=== PATIENT | female | born 1945 | race Caucasian/White ===

== ENCOUNTER 2017-01-15 11:19 | Observation (INO) ==
--- NOTE | 2017-01-15 11:43 | Emergency Department Note ---
Disposition Clinical Impression: Chest pain Disposition: Admitted As Inpatient Time of Disposition: 13:30 Chest Pain HPI - General Stated Complaint: CP Source: EMS Limitations: no limitations Vital Signs Reviewed: Yes Nursing Notes Reviewed: Yes - History of Present Illness HPI Narrative: Mrs. Mackenzie had just gotten out of the shower about an hour and 15 minutes before our interview and mentioned some midsternal chest pain. She was also short of breath and somewhat nauseated. She felt as though her heart was beating fast and she was somewhat dizzy and lightheaded as well. She felt like "my chest was going to explode". It is decreased somewhat since then but she still rates it as a 6 out of 10. Pt complaint: chest pain Severity scale (1-10): 4 - Related Data Home Medications Medication Instructions Recorded Confirmed Atorvastatin Calcium [Lipitor] 10 mg PO DAILY 03/27/16 01/15/17 ClonazePAM [Klonopin] 1 mg PO BID 03/27/16 01/15/17 Levothyroxine [Synthroid] 50 mcg PO DAILY 03/27/16 01/15/17 Metformin HCl [Metformin HCl ER] 500 mg PO DAILY 03/27/16 01/15/17 Omeprazole 40 mg PO DAILY 03/27/16 01/15/17 Quetiapine Fumarate [Seroquel] 300 mg PO DAILY 03/27/16 01/15/17 Amlodipine Besylate/Benazepril 1 each PO DAILY 01/06/17 01/15/17 [Lotrel 10-20 mg Capsule] Sotalol [Betapace] 80 mg PO Q12H 01/06/17 01/15/17 Previous Rx's Medication Instructions Recorded Aspirin 81 mg PO DAILY #30 tab.chew 06/07/16 Allergies Allergy/AdvReac Type Severity Reaction Status Date / Time codeine Allergy Rash Verified 11/23/16 20:12 nitroglycerin Allergy Anaphylaxis Verified 11/23/16 20:12 Cardiovascular: Reports: chest pain, palpitations Respiratory: Reports: cough Gastrointestinal: Reports: nausea. Denies: vomiting Neurological: Denies: weakness, numbness, paresthesias Endocrine: Denies: fatigue Chest Pain PMH - Past Medical History Medical history: Reports: atrial fibrillation, diabetes, hypertension, thyroid disease Psychiatric history: Reports: anxiety CARE CENTER MANAGER history: Reports: no CARE CENTER MANAGER history - Social History Smoking Status: Never smoker Alcohol use: Reports: none Drug use: Reports: none Physical Exam - General Limitations: no limitations General appearance: alert, in no apparent distress - Head Head exam: atraumatic - Eye Eye exam: Present: normal appearance - ENT ENT exam: normal oropharynx, normal external ear exam - Neck Neck exam: Present: normal inspection. Absent: lymphadenopathy - Chest Chest inspection: Present: normal inspection, symmetric chest wall rise, tenderness (Positive pain to palpation mid sternum on light palpation) - Respiratory Respiratory exam: Present: normal lung sounds bilaterally. Absent: respiratory distress, wheezes, stridor - Cardiovascular Cardiovascular exam: Present: regular rate, normal rhythm, normal heart sounds. Absent: systolic murmur, diastolic murmur - Abdominal Exam Abdominal exam: Present: soft, Non-Tender - Extremities Exam Extremities exam: Present: normal inspection. Absent: pedal edema - Neurological Exam Neurological exam: Present: alert - Psychiatric Psychiatric exam: Present: normal affect, normal mood - Skin Skin exam: Present: warm, dry Course Vital Signs Temperature 97.4 F L 01/15/17 11:31 Pulse Rate 100 01/15/17 11:31 Respiratory Rate 16 01/15/17 11:31 Blood Pressure 99/72 01/15/17 11:31 O2 Sat by Pulse Oximetry 96 01/15/17 11:31 Temperature 98.0 F 01/15/17 15:46 Pulse Rate 70 01/15/17 15:46 Respiratory Rate 20 01/15/17 15:46 Blood Pressure 133/78 01/15/17 15:46 O2 Sat by Pulse Oximetry 91 01/15/17 15:46 Oxygen Delivery Oxygen Delivery Room Air Chest Pain - [facility] Narrative Medical decision making narrative: Chest pain. Ms Huertas is a diabetic with a history of A. fib. Her rate is well controlled currently and I do not think this is the source of her chest pain. She did have pain on palpation but she is also at risk for CAD. She did have some typical anginal equivalents that accompanied this chest pain. It got better spontaneously then one from 6 out of 10-3 out of 10 with 2 mg of morphine. It resolved to her baseline with 2 more milligrams of morphine IV. She reports anaphylaxis with nitroglycerin. It would be prudent to obscure as her first troponin is negative but it has only been about an hour and a half since the onset of symptoms. I spoke with the covering hospitalist here Sarah presented the case. He accepted admission. She is in improved condition awaiting transfer to the floor. - Lab Data Lab results reviewed: Yes I reviewed the patient's lab results. Result diagrams: 01/15/17 12:30 01/15/17 12:30 Lab Results 01/15/17 01/15/17 01/15/17 Range/Units 12:30 12:30 12:30 WBC 6.6 (4.3-11.1) K/mcL RBC 4.48 (3.82-4.97) M/mcL Hgb 13.9 (11.5-15.4) g/dL Hct 42.7 (35.3-44.9) % MCV 95.3 (83.0-100.0) fL MCH 31.0 (28.0-33.3) pg MCHC 32.6 (31.6-35.5) g/dL RDW 12.7 (11.5-14.5) % Plt Count 245 (140-400) K/mcL MPV 9.3 L (9.4-12.4) fL Immature Gran % 0.3 (0-4) % Seg Neutrophils % 47.2 % Lymphocytes % 35.0 % Monocytes % 5.6 % Eosinophils % 11.0 % Basophils % 0.9 % Neutrophils # 3.1 (1.6-8.9) K/mcL Lymphocytes # 2.3 (0.6-4.6) K/mcL Monocytes # 0.4 (0.0-1.3) K/mcL Eosinophils # 0.7 H (0.0-0.6) K/mcL Basophils # 0.1 (0.0-0.2) K/mcL D-Dimer (0-500) ng/mLFEU Sodium (136-145) mEq/L Potassium (3.5-4.5) mEq/L Chloride (98-109) mEq/L Carbon Dioxide (19-29) mEq/L BUN (7-20) mg/dL Creatinine (0.57-1.11) mg/dL Est GFR ( Amer) (> 60) Est GFR (Non-Af Amer) (> 60) BUN/Creatinine Ratio (6-26) Glucose (70-99) mg/dL Calculated Osmolality (280-300) Calcium (8.6-10.8) mg/dL Phosphorus (2.3-4.7) mg/dL Magnesium (1.6-2.6) mg/dL Total Bilirubin (0.2-1.2) mg/dL AST (5-34) Units/L ALT (0-55) Units/L Alkaline Phosphatase (38-126) Units/L Troponin I 0.01 (0-0.03) ng/mL B-Natriuretic Peptide 44 (0-100) pg/mL Serum Total Protein (6.0-8.3) g/dL Albumin (3.5-5.0) g/dL Globulin (2.4-3.5) g/dL Albumin/Globulin Ratio (1.1-2.2) 01/15/17 01/15/17 Range/Units 12:30 12:30 WBC (4.3-11.1) K/mcL RBC (3.82-4.97) M/mcL Hgb (11.5-15.4) g/dL Hct (35.3-44.9) % MCV (83.0-100.0) fL MCH (28.0-33.3) pg MCHC (31.6-35.5) g/dL RDW (11.5-14.5) % Plt Count (140-400) K/mcL MPV (9.4-12.4) fL Immature Gran % (0-4) % Seg Neutrophils % % Lymphocytes % % Monocytes % % Eosinophils % % Basophils % % Neutrophils # (1.6-8.9) K/mcL Lymphocytes # (0.6-4.6) K/mcL Monocytes # (0.0-1.3) K/mcL Eosinophils # (0.0-0.6) K/mcL Basophils # (0.0-0.2) K/mcL D-Dimer 480 (0-500) ng/mLFEU Sodium 144 (136-145) mEq/L Potassium 4.0 (3.5-4.5) mEq/L Chloride 109 (98-109) mEq/L Carbon Dioxide 26 (19-29) mEq/L BUN 11 (7-20) mg/dL Creatinine 0.79 (0.57-1.11) mg/dL Est GFR ( Amer) > 60 (> 60) Est GFR (Non-Af Amer) > 60 (> 60) BUN/Creatinine Ratio 14 (6-26) Glucose 152 H (70-99) mg/dL Calculated Osmolality 300 (280-300) Calcium 9.0 (8.6-10.8) mg/dL Phosphorus 2.5 (2.3-4.7) mg/dL Magnesium 1.8 (1.6-2.6) mg/dL Total Bilirubin 0.3 (0.2-1.2) mg/dL AST 24 (5-34) Units/L ALT 28 (0-55) Units/L Alkaline Phosphatase 109 (38-126) Units/L Troponin I (0-0.03) ng/mL B-Natriuretic Peptide (0-100) pg/mL Serum Total Protein 6.7 (6.0-8.3) g/dL Albumin 3.5 (3.5-5.0) g/dL Globulin 3.2 (2.4-3.5) g/dL Albumin/Globulin Ratio 1.1 (1.1-2.2) - Radiology Data Radiology results reviewed: Yes I reviewed the patient's radiology results. - EKG Data EKG attestation: Yes I reviewed and interpreted this EKG. EKG results narrative: EKG is interpreted by me normal sinus rhythm 100 beats per minutes. One half box ST depression in lead 1. T-wave inversion aVL. No other T-wave abnormalities. No ST elevations. No evidence of hypertrophy. Left axis deviation. I do not appreciate any changes from study done recently 01/06/2017.
[2017-01-15] MEDS ORDERED: *HR* Morphine 2 MG/ML SYRINGE IVP ONE (12:08)
[2017-01-15 12:43] LABS: Basophils # 0.1 K/mcL (0.0-0.2); Basophils % 0.9 %; Eosinophils # 0.7 K/mcL (0.0-0.6); Hematocrit 42.7 % (35.3-44.9); Hemoglobin 13.9 g/dL (11.5-15.4); Immature Granulocytes % 0.3 % (0-4); Lymphocytes # 2.3 K/mcL (0.6-4.6); Mean Corpuscular HGB Conc 32.6 g/dL (31.6-35.5); Mean Corpuscular Volume 95.3 fL (83.0-100.0); Mean Platelet Volume 9.3 fL (9.4-12.4); Monocytes # 0.4 K/mcL (0.0-1.3); Monocytes % 5.6 %; Neutrophils # 3.1 K/mcL (1.6-8.9); Platelet Count 245 K/mcL (140-400); Red Blood Count 4.48 M/mcL (3.82-4.97); Red Cell Distribution Width 12.7 % (11.5-14.5); Segmented Neutrophils % 47.2 %
[2017-01-15] MEDS ORDERED: *HR* Morphine 2 MG/ML SYRINGE IVP PRN (12:44)
[2017-01-15 12:50] LABS: Alanine Aminotransferase 28 Units/L (0-55); Albumin 3.5 g/dL (3.5-5.0); Albumin/Globulin Ratio 1.1 (1.1-2.2); Alkaline Phosphatase 109 Units/L (38-126); Aspartate Amino Transferase 24 Units/L (5-34); BUN/Creatinine Ratio 14 (6-26); Bilirubin,Total 0.3 mg/dL (0.2-1.2); Blood Urea Nitrogen 11 mg/dL (7-20); Carbon Dioxide 26 mEq/L (19-29); Chloride 109 mEq/L (98-109); Globulin 3.2 g/dL (2.4-3.5); Glucose 152 mg/dL (70-99); Magnesium 1.8 mg/dL (1.6-2.6); Osmolality,Calculated 300 (280-300); Phosphorous 2.5 mg/dL (2.3-4.7); Sodium 144 mEq/L (136-145); Total Protein 6.7 g/dL (6.0-8.3); eGFR For African Americans > 60 (> 60); eGFR For Non-African Americans > 60 (> 60)
[2017-01-15] MEDS ORDERED: Ondansetron ODT 4 MG TAB.RAPDIS SL PRN (14:10)
[2017-01-15] MEDS ORDERED: Acetaminophen 325 MG TABLET PO PRN (14:10)
[2017-01-15] MEDS ORDERED: MOM Conc 10 ML UD.LIQ PO PRN (14:10)
[2017-01-15] MEDS ORDERED: Naloxone 0.4 MG/ML INJ IVP PRN (14:10)
--- NOTE | 2017-01-15 15:48 | Internal Med History&Physical ---
Date of Encounter: 01/15/17 Time of Encounter: 15:00 Assessment and Plan (1) HLD (hyperlipidemia) Current visit: No Status: Chronic Stable Qualifiers: Hyperlipidemia type: unspecified Qualified Code(s): E78.5 - Hyperlipidemia , unspecified (2) HTN (hypertension) Current visit: No Status: Acute Blood pressures well controlled. Qualifiers: Hypertension type: essential hypertension Qualified Code(s): I10 - Essential (primary) hypertension (3) Non-insulin dependent type 2 diabetes mellitus Current visit: No Status: Chronic He type II diabetic. (4) Hypothyroid Current visit: No Status: Acute Only history is hypothyroidism. She takes Synthroid and I will have to research her most recent lab Qualifiers: Hypothyroidism type: congenital without goiter Qualified Code(s): E03.1 - Congenital hypothyroidism without goiter (5) Paroxysmal a-fib Current visit: No Status: Acute Seems to be sinus and regular right now. She sees Dr. Leora ivan if she is here Saturday that will make an appointment. Internal Medicine - H&P: HPI Chief complaint: Chest pain Admitted From: Emergency Dept Plans for Post Hospital Care: Home History of present illness: Ms. Mackenzie is a 71 year old female Bout of 5 minute session of crushing chest discomfort or shortness of breath that resolved spontaneously. She is pain-free currently and only other history is of atrial fibrillation Past Med Surg Social Fam HX - Past Medical History Medical history: atrial fibrillation, diabetes, hypertension, thyroid disease Psychiatric history: anxiety - Social History Smoking Status: Never smoker Smokeless Tobacco Status: No Alcohol use: none Drug use: none - Family History Mother Family Member Ethnicity: Non- Hx Family Cardiac Disorders: No Hx Family Respiratory Disorders: Yes Hx Family Cancer: Yes Hx Family GI Disorders: No Hx Family Endocrine Disorder: No Hx Family Neuromuscular Disorders: No Hx Family Neurologic Disorders: No Hx Family HEENT Disorders: No Hx Family Autoimmune Disorders: No Internal Medicine - H&P: Meds Atorvastatin Calcium [Lipitor] 10 mg PO DAILY 03/27/16 [History] ClonazePAM [Klonopin] 1 mg PO BID 03/27/16 [History] Levothyroxine [Synthroid] 50 mcg PO DAILY 03/27/16 [History] Metformin HCl [Metformin HCl ER] 500 mg PO DAILY 03/27/16 [History] Omeprazole 40 mg PO DAILY 03/27/16 [History] Quetiapine Fumarate [Seroquel] 300 mg PO DAILY 03/27/16 [History] Aspirin 81 mg PO DAILY #30 tab.chew 06/07/16 [Rx] Amlodipine Besylate/Benazepril [Lotrel 10-20 mg Capsule] 1 each PO DAILY [History] Sotalol [Betapace] 80 mg PO Q12H 01/06/17 [History] Allergies codeine Allergy (Verified 11/23/16 20:12) Rash nitroglycerin Allergy (Verified 11/23/16 20:12) Anaphylaxis All Systems PM: A 10-system review of systems was performed and is negative for pertinent findings except as documented above in the HPI. - Constitutional Vitals: Temp Pulse Resp BP Pulse Ox 98.4 F 100 16 112/54 96 01/15/17 15:25 01/15/17 11:31 01/15/17 15:25 01/15/17 15:25 01/15/17 11:31 - Head Head exam: Present: atraumatic, normal inspection, normocephalic - Neck Neck exam general surgery: Present: supple, trachea midline. Absent: lymphadenopathy - Respiratory Respiratory exam: Present: CTAB. Absent: accessory muscle use, rales, rhonchi, wheezes - Cardiovascular Cardiovascular exam: Present: RRR, +S1, +S2. Absent: diastolic murmur, gallop, rubs, systolic murmur - GI/Abdominal GI/Abdominal exam: Present: normal bowel sounds, soft, no peritoneal signs. Absent: distended, tenderness Internal Med - H&P Results - Labs CBC & Chem 7: 01/15/17 12:30 01/15/17 12:30 Labs: Lab is good but the first troponin was done shortly after the complaint so will see what the next one says. There is any rise in troponin should be shipped immediately to obtain
--- NOTE | 2017-01-15 17:38 | Electrocardiograph Report ---
[place] [id number] Test Date: 2017-01-15 Pat Name: Mary Kate Mackenzie Department: 2000 Room: 116 Gender: F Layboy Tender: RUFINO : 1945 Requested By: Jude De Anda Order Number: [id number] Reading MD: Tiffanie Ceron Measurements Intervals [place] Rate: 100 P: 70 SC: 143 QRS: -26 QRSD: 95 T: 79 QT: 365 QTc: 422 Interpretive Statements SINUS TACHYCARDIA BORDERLINE LEFT AXIS DEVIATION NONSPECIFIC ST \T\ T-WAVE ABNORMALITY ABNORMAL RHYTHM ECG Electronically Signed On 01-15-2017 17:36:49 EDT by Tiffanie Ceron
[2017-01-15] MEDS ORDERED: Amoxicillin 500 MG CAPSULE PO SCH (21:00)
[2017-01-15] MEDS ORDERED: ClonazePAM 1 MG TABLET PO SCH (21:00)
[2017-01-15 21:08] LABS: Thyroid Stimulating Hormone 1.217 mcIU/mL (0.350-4.840)
[2017-01-15] MEDS: ClonazePAM 1 MG TABLET PO SCH (22:13)
[2017-01-16] MEDS ORDERED: Acetaminophen 325 MG TABLET PO PRN (04:50)
[2017-01-16] MEDS ORDERED: Naloxone 0.4 MG/ML INJ IVP PRN (04:51)
[2017-01-16] MEDS ORDERED: MOM Conc 10 ML UD.LIQ PO PRN (04:53)
[2017-01-16] MEDS ORDERED: Ondansetron ODT 4 MG TAB.RAPDIS SL PRN (04:54)
[2017-01-16] MEDS ORDERED: *HR* Enoxaparin 40 MG/0.4 ML SYRINGE SQ SCH ×2 (06:00)
[2017-01-16] MEDS ORDERED: *HR* Metformin 500 MG TABLET PO SCH ×2 (08:00)
[2017-01-16] MEDS ORDERED: AMOXICILLIN 500 MG PO SCH (09:00)
[2017-01-16] MEDS ORDERED: Aspirin Enteric Coated 81 MG Tablet PO SCH (09:00)
[2017-01-16] MEDS ORDERED: Aspirin 81 MG TAB.CHEW PO SCH (09:00)
[2017-01-16] MEDS: ClonazePAM 1 MG TABLET PO SCH (09:21)
[2017-01-16 11:22] VITALS: BP 138/84
--- NOTE | 2017-01-16 12:30 | Discharge Summary ---
Date of Encounter: 01/16/17 Time of Encounter: 12:25 - Discharge Diagnosis (1) Non-insulin dependent type 2 diabetes mellitus Priority: Secondary Status: Chronic (2) Chest pain Priority: Primary Status: Acute Qualifiers: Chest pain type: other chest pain Qualified Code(s): R07.89 - Other chest pain; R07.8 - Other chest pain - Discharge Medications Home Medications: Atorvastatin Calcium [Lipitor] 10 mg PO DAILY 03/27/16 [History] ClonazePAM [Klonopin] 1 mg PO BID 03/27/16 [History] Levothyroxine [Synthroid] 50 mcg PO DAILY 03/27/16 [History] Metformin HCl [Metformin HCl ER] 500 mg PO DAILY 03/27/16 [History] Omeprazole 40 mg PO DAILY 03/27/16 [History] Quetiapine Fumarate [Seroquel] 300 mg PO DAILY 03/27/16 [History] Aspirin 81 mg PO DAILY #30 tab.chew 06/07/16 [Rx] Amlodipine Besylate/Benazepril [Lotrel 10-20 mg Capsule] 1 each PO DAILY [History] Sotalol [Betapace] 80 mg PO Q12H 01/06/17 [History] Acetaminophen [Tylenol] 650 mg PO Q6HR PRN #0 tablet 01/16/17 [Rx] Amlodipine [Norvasc] 10 mg PO DAILY tablet 01/16/17 [Rx] Amoxicillin [Amoxil] 500 mg PO TID capsule 01/16/17 [Rx] Aspirin Enteric Coated [Aspirin EC] 81 mg PO DAILY tablet. 01/16/17 [Rx] ClonazePAM [Klonopin] 1 mg PO BID tablet 01/16/17 [Rx] Levothyroxine [Synthroid] 50 mcg PO 0630 tablet 01/16/17 [Rx] Lisinopril [Zestril] 2.5 mg PO DAILY tablet 01/16/17 [Rx] MOM Conc [MILK OF MAGNESIA conc] 10 ml PO DAILY PRN #0 ud.liq 01/16/17 [Rx] Metformin [Glucophage] 500 mg PO 0800 tablet 01/16/17 [Rx] Quetiapine Fumarate [Seroquel] 300 mg PO HS tablet 01/16/17 [Rx] Sotalol [Betapace] 80 mg PO Q12HR tablet 01/16/17 [Rx] Sotalol [Betapace] 80 mg PO Q12HR tablet 01/16/17 [Rx] Allergies/Adverse Reactions: Allergies codeine Allergy (Verified 11/23/16 20:12) Rash nitroglycerin Allergy (Verified 11/23/16 20:12) Anaphylaxis Date of admission: 01/15/17 15:24 Primary care physician: Gomez Lynch CNP Discharging clinician: Yousif Quiñonez Anticipated date of discharge: 01/16/17 - Patient Status Disposition: Home, Self-Care Condition: Fair Functional capacity at discharge: independent ambulation Overall status at discharge: patient is back to baseline - Discharge Instructions Instructions: Diabetes Mellitus Type 2 in Adults (DC) Follow Up With: Gomez Lynch CNP [Primary Care Provider] - - Diet and Activity Activity: increase activity as tolerated Diet: diabetic diet Hospital course: Ms. Mackenzie is a 71 year old female Chest pain. Ms Huertas is a diabetic with a history of A. fib. She initially presented to the ED with chest pain. Her rate is well controlled currently and I do not think this is the source of her chest pain. She did have pain on palpation but she is also at risk for CAD. She did have some typical anginal equivalents that accompanied this chest pain. It got better spontaneously then one from 6 out of 10-3 out of 10 with 2 mg of morphine. It resolved to her baseline with 2 more milligrams of morphine IV. She was admitted for rule out. Serial troponin was negative. On today's examination she has no chest pain. She is anxious about her son dying. She wants to go home. She has no further chest pain. No shortness of breath. Time spent discussing smoking cessation with patient: more than 10 minutes - Time Spent with Patient Total time spent providing and/or coordinating discharge services: Less than 30 minutes - Constitutional Vitals: Temp Pulse Resp BP Pulse Ox 98.0 F 78 16 138/84 93 01/16/17 11:00 01/16/17 11:00 01/16/17 11:00 01/16/17 11:00 01/16/17 11:00 General appearance: Present: A&O X 3, no acute distress - Respiratory Respiratory exam: Present: CTAB. Absent: accessory muscle use, rales, rhonchi, wheezes - Cardiovascular Cardiovascular exam: Present: RRR, +S1, +S2. Absent: diastolic murmur, gallop, rubs, systolic murmur - GI/Abdominal GI/Abdominal exam: Present: normal bowel sounds, soft, no peritoneal signs. Absent: distended, tenderness - Extremities Exam Extremities exam: Present: warm, radial pulses palpable and symetrical. Absent : calf tenderness, cyanotic, pedal edema - Neurological Exam Neurological exam: Present: CN II-XII intact, oriented X3, no focal deficits. Absent: pronater drift, facial droop, speech deficit
== END 2017-01-16 13:06 | disposition home or self-care (01) ==
LOC: EMEROOGRE 11:19 → INPGRE 11:19 → EMEROOGRE 12:45 → INPGRE 15:25
PROVIDERS: ADMIT Internal Medicine; ATTEND Internal Medicine

== ENCOUNTER 2017-05-17 13:40 | Observation (INO) ==
[2017-05-17] MEDS ORDERED: Nitroglycerin 0.4 MG TAB.SUBL SL PRN ×2 (14:26→16:45)
[2017-05-17] MEDS ORDERED: Ondansetron 4 MG/2 ML VIAL IVP ONE (14:27)
[2017-05-17 15:06] LABS: Basophils # 0.1 K/mcL (0.0-0.2); Basophils % 0.8 %; Eosinophils # 0.5 K/mcL (0.0-0.6); Eosinophils % 8.2 %; Hematocrit 40.5 % (35.3-44.9); Hemoglobin 13.6 g/dL (11.5-15.4); Immature Granulocytes % 0.2 % (0-4); Lymphocytes # 2.3 K/mcL (0.6-4.6); Lymphocytes % 36.5 %; Mean Corpuscular HGB Conc 33.6 g/dL (31.6-35.5); Mean Corpuscular Hemoglobin 31.8 pg (28.0-33.3); Mean Corpuscular Volume 94.6 fL (83.0-100.0); Mean Platelet Volume 9.4 fL (9.4-12.4); Monocytes # 0.4 K/mcL (0.0-1.3); Monocytes % 6.4 %; Platelet Count 199 K/mcL (140-400); Red Blood Count 4.28 M/mcL (3.82-4.97); Red Cell Distribution Width 12.4 % (11.5-14.5); Segmented Neutrophils % 47.9 %
[2017-05-17 15:18] LABS: INR 1.1; Prothrombin Time 12.1 Seconds (9.4-12.1)
[2017-05-17 15:20] LABS: D-Dimer < 211 ng/mLFEU (0-500)
[2017-05-17 15:23] LABS: Alanine Aminotransferase 54 Units/L (0-55); Albumin 3.5 g/dL (3.5-5.0); Albumin/Globulin Ratio 1.1 (1.1-2.2); Alkaline Phosphatase 97 Units/L (38-126); Aspartate Amino Transferase 44 Units/L (5-34); BUN/Creatinine Ratio 19 (6-26); Bilirubin,Total 0.3 mg/dL (0.2-1.2); Blood Urea Nitrogen 14 mg/dL (7-20); Calcium 9.1 mg/dL (8.6-10.8); Carbon Dioxide 23 mEq/L (19-29); Chloride 106 mEq/L (98-109); Globulin 3.2 g/dL (2.4-3.5); Glucose 145 mg/dL (70-99); Osmolality,Calculated 295 (280-300); Sodium 141 mEq/L (136-145); Total Protein 6.7 g/dL (6.0-8.3); eGFR For African Americans > 60 (> 60); eGFR For Non-African Americans > 60 (> 60)
--- NOTE | 2017-05-17 16:08 | Emergency Department Note ---
Disposition Clinical Impression: Chest pain Disposition: Admitted As Inpatient Condition: Good Instructions: Chest Pain (ED) Referrals: Gomez Lynch, ELECTRIC SHOVEL OPERATOR [Primary Care Provider] - Forms: ED Satisfaction Letter Time of Disposition: 16:04 Chest Pain HPI - General Chief Complaint: ED Chest Pain Stated Complaint: arrived by squad Source: patient, EMS Limitations: no limitations Vital Signs Reviewed: Yes Nursing Notes Reviewed: Yes - History of Present Illness HPI Narrative: Ms Mackenzie was sitting on her couch today and noticed the onset of sudden sharp midsternal chest pain. No radiation. It did make her short of breath and diaphoretic however. No nausea no vomiting. She heart attack about 15 years ago but does not know if it was reminiscent of that or not. She was also very dizzy and lightheaded even know she was in a sitting position. She does have a history of atrial fibrillation needed be cardioverted 3 years ago. She is on Cirella to for this she does not believe she has been back in A. fib since then however her daughter placed a finger monitor on her at home and told her that her heart was 150 bpm. She does not specifically recall any palpitation type symptoms. This lasted about 10 minutes and spontaneously decreased dramatically. She reports it as a "15 "out of 10 for those 10 minutes. She received 4 baby aspirin from the squad but tells me that nitroglycerin makes her stomach upset reports that is a anaphylactic allergy. She reports that during those 10 minutes "everything went black ". On further questioning she tells me that she could see nothing out of either eye. The time that she was lightheaded and had chest pain. She does tell me that it was not one eye or the other but both and that her vision is fully restored to baseline at this point. She does tell me that during our interview that her chest pain is still a 3 out of 10 at this point. 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 Severity scale (1-10): 4 - Related Data Home Medications Medication Instructions Recorded Confirmed Atorvastatin Calcium [Lipitor] 10 mg PO DAILY 03/27/16 05/17/17 Levothyroxine [Synthroid] 50 mcg PO DAILY 03/27/16 05/17/17 Omeprazole 40 mg PO DAILY 03/27/16 05/17/17 Quetiapine Fumarate [Seroquel] 25 mg PO BID 03/27/16 05/17/17 Amlodipine Besylate/Benazepril 1 each PO DAILY 01/06/17 05/17/17 [Lotrel 10-20 mg Capsule] Cetirizine HCl [Zyrtec] 10 mg PO DAILY 05/17/17 05/17/17 Rivaroxaban [Xarelto] 20 mg PO DAILY 05/17/17 05/17/17 Previous Rx's Medication Instructions Recorded Aspirin 81 mg PO DAILY #30 tab.chew 06/07/16 Quetiapine Fumarate [Seroquel] 300 mg PO HS tablet 01/16/17 Sotalol [Betapace] 80 mg PO Q12HR tablet 01/16/17 clonazePAM [Klonopin] 1 mg PO BID tablet 01/16/17 metFORMIN [Glucophage] 500 mg PO 0800 tablet 01/16/17 Allergies Allergy/AdvReac Type Severity Reaction Status Date / Time codeine Allergy Rash Verified 11/23/16 20:12 nitroglycerin Allergy Anaphylaxis Verified 11/23/16 20:12 All systems ED: reviewed and negative except as stated. Constitutional: Denies: fever, chills Eyes: Reports: vision change ENT ED: Denies: dysphagia Cardiovascular: Reports: chest pain. Denies: palpitations Respiratory: Reports: dyspnea Gastrointestinal: Denies: nausea, vomiting Musculoskeletal: Denies: back pain Neurological: Denies: headache Endocrine: Denies: fatigue Chest Pain PMH - Past Medical History Medical history: Reports: atrial fibrillation, diabetes, hypertension, thyroid disease Psychiatric history: Reports: anxiety BIOMEDICAL ENGINEERING PROFESSOR history: Reports: no BIOMEDICAL ENGINEERING PROFESSOR history - Social History Smoking Status: Never smoker Alcohol use: Reports: none Drug use: Reports: none Physical Exam - General Limitations: no limitations General appearance: alert, in no apparent distress - Head Head exam: normocephalic - Eye Eye exam: Present: normal appearance - ENT ENT exam: normal oropharynx - Neck Neck exam: Present: normal inspection, other (No JVD). Absent: lymphadenopathy - Chest Chest inspection: Present: tenderness (Positive pain to palpation mid sternum that she is unable to tell me if this reproduces her presenting complaint) - Respiratory Respiratory exam: Present: normal lung sounds bilaterally. Absent: respiratory distress, wheezes, stridor - Cardiovascular Cardiovascular exam: Present: regular rate, normal rhythm, normal heart sounds - Abdominal Exam Abdominal exam: Present: soft, Non-Tender - Extremities Exam Extremities exam: Present: normal inspection. Absent: pedal edema - Neurological Exam Neurological exam: Present: alert - Psychiatric Psychiatric exam: Present: normal affect, normal mood - Skin Skin exam: Present: warm, dry Course Vital Signs Temperature 98.6 F 05/17/17 13:41 Pulse Rate 97 05/17/17 13:41 Respiratory Rate 16 05/17/17 13:41 Blood Pressure 133/81 05/17/17 13:41 O2 Sat by Pulse Oximetry 95 05/17/17 13:41 Temperature 98.6 F 05/17/17 13:41 Pulse Rate 97 05/17/17 13:41 Respiratory Rate 16 05/17/17 13:41 Blood Pressure 133/81 05/17/17 13:41 O2 Sat by Pulse Oximetry 95 05/17/17 13:41 Oxygen Delivery Oxygen Delivery Room Air Chest Pain - MDM Narrative Medical decision making narrative: Chest pain. Atypical history but Miss Mackenzie does have some risk factors. 3 have 10 chest pain on initial interview cause me to want to use nitroglycerin to get her chest pain free. I did explain that GI upset is probably not an allergy and even gave him some IV Zofran before administering the nitroglycerin. Just the same ER staff tells me she refused. She also has a codeine allergy therefore morphine was not offered either. Chest pain resolved with further observation to a chest pain-free state. Initial troponin negative. I think it would be prudent to continue to observe her on telemetry and cycle her troponins. She is known to [facility] but refuses to go there. I did speak with the covering hospitalist at [facility] presented the case. He accepted admission. She is currently in stable condition chest pain-free awaiting transfer to the floor here [facility]. - Medical Records Medical records reviewed: Yes I reviewed the patient's medical records. - Lab Data Lab results reviewed: Yes I reviewed the patient's lab results. Result diagrams: 05/17/17 14:50 05/17/17 14:50 Lab Results 05/17/17 05/17/17 05/17/17 Range/Units 14:50 14:50 14:50 WBC 6.2 (4.3-11.1) K/mcL RBC 4.28 (3.82-4.97) M/mcL Hgb 13.6 (11.5-15.4) g/dL Hct 40.5 (35.3-44.9) % MCV 94.6 (83.0-100.0) fL MCH 31.8 (28.0-33.3) pg MCHC 33.6 (31.6-35.5) g/dL RDW 12.4 (11.5-14.5) % Plt Count 199 (140-400) K/mcL MPV 9.4 (9.4-12.4) fL Immature Gran % 0.2 (0-4) % Seg Neutrophils % 47.9 % Lymphocytes % 36.5 % Monocytes % 6.4 % Eosinophils % 8.2 % Basophils % 0.8 % Neutrophils # 3.0 (1.6-8.9) K/mcL Lymphocytes # 2.3 (0.6-4.6) K/mcL Monocytes # 0.4 (0.0-1.3) K/mcL Eosinophils # 0.5 (0.0-0.6) K/mcL Basophils # 0.1 (0.0-0.2) K/mcL PT 12.1 (9.4-12.1) Seconds INR 1.1 APTT 36.0 (26.0-36.0) Seconds D-Dimer < 211 (0-500) ng/mLFEU Sodium 141 (136-145) mEq/L Potassium 4.0 (3.5-4.5) mEq/L Chloride 106 (98-109) mEq/L Carbon Dioxide 23 (19-29) mEq/L BUN 14 (7-20) mg/dL Creatinine 0.74 (0.57-1.11) mg/dL Est GFR ( Amer) > 60 (> 60) Est GFR (Non-Af Amer) > 60 (> 60) BUN/Creatinine Ratio 19 (6-26) Glucose 145 H (70-99) mg/dL Calculated Osmolality 295 (280-300) Calcium 9.1 (8.6-10.8) mg/dL Total Bilirubin 0.3 (0.2-1.2) mg/dL AST 44 H (5-34) Units/L ALT 54 (0-55) Units/L Alkaline Phosphatase 97 (38-126) Units/L Troponin I (0-0.03) ng/mL B-Natriuretic Peptide (0-100) pg/mL Serum Total Protein 6.7 (6.0-8.3) g/dL Albumin 3.5 (3.5-5.0) g/dL Globulin 3.2 (2.4-3.5) g/dL Albumin/Globulin Ratio 1.1 (1.1-2.2) 05/17/17 05/17/17 Range/Units 14:50 14:50 WBC (4.3-11.1) K/mcL RBC (3.82-4.97) M/mcL Hgb (11.5-15.4) g/dL Hct (35.3-44.9) % MCV (83.0-100.0) fL MCH (28.0-33.3) pg MCHC (31.6-35.5) g/dL RDW (11.5-14.5) % Plt Count (140-400) K/mcL MPV (9.4-12.4) fL Immature Gran % (0-4) % Seg Neutrophils % % Lymphocytes % % Monocytes % % Eosinophils % % Basophils % % Neutrophils # (1.6-8.9) K/mcL Lymphocytes # (0.6-4.6) K/mcL Monocytes # (0.0-1.3) K/mcL Eosinophils # (0.0-0.6) K/mcL Basophils # (0.0-0.2) K/mcL PT (9.4-12.1) Seconds INR APTT (26.0-36.0) Seconds D-Dimer (0-500) ng/mLFEU Sodium (136-145) mEq/L Potassium (3.5-4.5) mEq/L Chloride (98-109) mEq/L Carbon Dioxide (19-29) mEq/L BUN (7-20) mg/dL Creatinine (0.57-1.11) mg/dL Est GFR ( Amer) (> 60) Est GFR (Non-Af Amer) (> 60) BUN/Creatinine Ratio (6-26) Glucose (70-99) mg/dL Calculated Osmolality (280-300) Calcium (8.6-10.8) mg/dL Total Bilirubin (0.2-1.2) mg/dL AST (5-34) Units/L ALT (0-55) Units/L Alkaline Phosphatase (38-126) Units/L Troponin I 0.01 (0-0.03) ng/mL B-Natriuretic Peptide 62 (0-100) pg/mL Serum Total Protein (6.0-8.3) g/dL Albumin (3.5-5.0) g/dL Globulin (2.4-3.5) g/dL Albumin/Globulin Ratio (1.1-2.2) - Radiology Data Radiology results reviewed: Yes I reviewed the patient's radiology results. - EKG Data EKG attestation: Yes I reviewed and interpreted this EKG. EKG results narrative: EKG is interpreted by me initially done at 1348 normal sinus rhythm 96 bpm. Left axis deviation. No evidence of hypertrophy. There is some T-wave flattening in 1 and aVL. To some extent this is seen in V3 and V4 V5 V6 as well although there is some positive deflection of the T waves in these leads. No ST elevation or depression. No Q waves. EKG repeated when she was completely chest pain-free at 1552. No appreciable changes from initial EKG.
[2017-05-17] MEDS ORDERED: Acetaminophen 325 MG TABLET PO PRN (16:45)
[2017-05-17] MEDS ORDERED: Naloxone 0.4 MG/ML INJ IVP PRN (16:45)
[2017-05-17] MEDS ORDERED: Ondansetron 4 MG/2 ML VIAL IVP PRN (16:45)
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
[2017-05-17] MEDS ORDERED: clonazePAM 1 MG TABLET PO SCH (21:00)
[2017-05-17] MEDS: clonazePAM 1 MG TABLET PO SCH (23:01)
[2017-05-18] MEDS ORDERED: *HR* Enoxaparin 40 MG/0.4 ML SYRINGE SQ SCH (06:00)
[2017-05-18] MEDS ORDERED: *HR* Metformin 500 MG TABLET PO SCH (08:00)
[2017-05-18] MEDS: clonazePAM 1 MG TABLET PO SCH (08:11)
[2017-05-18] MEDS ORDERED: Aspirin 81 MG TAB.CHEW PO SCH (09:00)
[2017-05-18] MEDS ORDERED: amLODIPine 5 MG TABLET PO SCH (09:00)
[2017-05-18 11:33] VITALS: BP 110/60
--- NOTE | 2017-05-18 12:01 | Discharge Summary ---
Date of Encounter: 05/18/17 Time of Encounter: 11:56 - Discharge Diagnosis (1) Chest pain Priority: Primary Status: Acute Comments: Patient was admitted to an observation bed from the emergency room having come to the ER with a history of chest pain and possibly passing out. She said she had an episode of chest pain that was "15-20 out of 10 "clear across her anterior chest. Later it dissipated down to almost nothing. Her pulse was 150 and then 102 and her blood pressure is 180/104 at home. She was brought to the emergency room after having been given aspirin by the squad. Her workup in the ER was unremarkable including chest x-ray, EKG which was unchanged from before and sinus rhythm, serial troponins and negative. Having had a history of chest pain and prior history of paroxysmal atrial fibrillation and poorly documented SD 15 years ago she was admitted to an observation bed. Overnight she has had no chest pain, dyspnea, neurologic or cardiac symptoms at all. This morning she has been ambulatory, had a shower. Her only complaint is that she has palpable right parasternal tenderness in a small area consistent with costochondritis. Her serial troponins were unremarkable and last was 0.00. Her cardiac and respiratory examinations are normal. Her vitals are stable. She will be discharged to home today. We did not make any change in her current medications. She was last evaluated by Dr. White in January. I recommended that she contact Lio Lynch's office on Saturday for follow-up. She will return to the ER if having symptoms in the meantime. Qualifiers: Chest pain type: other chest pain Qualified Code(s): R07.89 - Other chest pain; R07.8 - Other chest pain (2) Paroxysmal a-fib Priority: Secondary Status: Chronic Comments: Patient has a previous history of paroxysmal atrial fibrillation. She has been in sinus rhythm since admission. She remains anticoagulated with Xarelto. (3) HTN (hypertension) Priority: Secondary Status: Chronic Comments: She is a chronic history of hypertension. Her blood pressures have been normal since admission. She was discharged on her usual hypertensive medication. Qualifiers: Hypertension type: essential hypertension Qualified Code(s): I10 - Essential (primary) hypertension (4) Non-insulin dependent type 2 diabetes mellitus Priority: Secondary Status: Chronic Comments: She has a history of diabetes mellitus type 2. Her sugars have been 100-130 range. We did not change her medication. 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 - Discharge Medications Home Medications: Atorvastatin Calcium [Lipitor] 10 mg PO DAILY 03/27/16 [History] Levothyroxine [Synthroid] 50 mcg PO DAILY 03/27/16 [History] Omeprazole 40 mg PO DAILY 03/27/16 [History] Quetiapine Fumarate [Seroquel] 25 mg PO BID 03/27/16 [History] Aspirin 81 mg PO DAILY #30 tab.chew 06/07/16 [Rx] Amlodipine Besylate/Benazepril [Lotrel 10-20 mg Capsule] 1 each PO DAILY [History] Quetiapine Fumarate [Seroquel] 300 mg PO HS tablet 01/16/17 [Rx] Sotalol [Betapace] 80 mg PO Q12HR tablet 01/16/17 [Rx] metFORMIN [Glucophage] 500 mg PO 0800 tablet 01/16/17 [Rx] Cetirizine HCl [Zyrtec] 10 mg PO DAILY 05/17/17 [History] Rivaroxaban [Xarelto] 20 mg PO DAILY 05/17/17 [History] Acetaminophen [Tylenol] 650 mg PO Q6HR PRN tab 05/18/17 [Rx] clonazePAM [Klonopin] 1 mg PO DAILY tab 05/18/17 [Rx] clonazePAM [Klonopin] 2 mg PO HS tab 05/18/17 [Rx] Allergies/Adverse Reactions: Allergies codeine Allergy (Verified 11/23/16 20:12) Rash ibuprofen Allergy (Verified 05/17/17 18:30) Shakiness nitroglycerin Allergy (Verified 11/23/16 20:12) Anaphylaxis Procedures/tests Complete & Pending: Laboratory Results - last 24 hr 05/17/17 05/17/17 05/17/17 14:50 14:50 14:50 WBC 6.2 RBC 4.28 Hgb 13.6 Hct 40.5 MCV 94.6 MCH 31.8 MCHC 33.6 RDW 12.4 Plt Count 199 MPV 9.4 Immature Gran % 0.2 Seg Neutrophils % 47.9 Lymphocytes % 36.5 Monocytes % 6.4 Eosinophils % 8.2 Basophils % 0.8 Neutrophils # 3.0 Lymphocytes # 2.3 Monocytes # 0.4 Eosinophils # 0.5 Basophils # 0.1 PT 12.1 INR 1.1 APTT 36.0 D-Dimer < 211 Sodium 141 Potassium 4.0 Chloride 106 Carbon Dioxide 23 BUN 14 Creatinine 0.74 Est GFR ( Amer) > 60 Est GFR (Non-Af Amer) > 60 BUN/Creatinine Ratio 19 Glucose 145 H POC Glucose Calculated Osmolality 295 Calcium 9.1 Total Bilirubin 0.3 AST 44 H ALT 54 Alkaline Phosphatase 97 Troponin I B-Natriuretic Peptide Serum Total Protein 6.7 Albumin 3.5 Globulin 3.2 Albumin/Globulin Ratio 1.1 05/17/17 05/17/17 05/17/17 14:50 14:50 17:10 WBC RBC Hgb Hct MCV MCH MCHC RDW Plt Count MPV Immature Gran % Seg Neutrophils % Lymphocytes % Monocytes % Eosinophils % Basophils % Neutrophils # Lymphocytes # Monocytes # Eosinophils # Basophils # PT INR APTT D-Dimer Sodium Potassium Chloride Carbon Dioxide BUN Creatinine Est GFR ( Amer) Est GFR (Non-Af Amer) BUN/Creatinine Ratio Glucose POC Glucose Calculated Osmolality Calcium Total Bilirubin AST ALT Alkaline Phosphatase Troponin I 0.01 0.02 B-Natriuretic Peptide 62 Serum Total Protein Albumin Globulin Albumin/Globulin Ratio 05/17/17 05/17/17 05/18/17 20:37 22:45 05:00 WBC RBC Hgb Hct MCV MCH MCHC RDW Plt Count MPV Immature Gran % Seg Neutrophils % Lymphocytes % Monocytes % Eosinophils % Basophils % Neutrophils # Lymphocytes # Monocytes # Eosinophils # Basophils # PT INR APTT D-Dimer Sodium Potassium Chloride Carbon Dioxide BUN Creatinine Est GFR ( Amer) Est GFR (Non-Af Amer) BUN/Creatinine Ratio Glucose POC Glucose 129 H Calculated Osmolality Calcium Total Bilirubin AST ALT Alkaline Phosphatase Troponin I 0.02 0.00 B-Natriuretic Peptide Serum Total Protein Albumin Globulin Albumin/Globulin Ratio 05/18/17 08:08 WBC RBC Hgb Hct MCV MCH MCHC RDW Plt Count MPV Immature Gran % Seg Neutrophils % Lymphocytes % Monocytes % Eosinophils % Basophils % Neutrophils # Lymphocytes # Monocytes # Eosinophils # Basophils # PT INR APTT D-Dimer Sodium Potassium Chloride Carbon Dioxide BUN Creatinine Est GFR ( Amer) Est GFR (Non-Af Amer) BUN/Creatinine Ratio Glucose POC Glucose 128 H Calculated Osmolality Calcium Total Bilirubin AST ALT Alkaline Phosphatase Troponin I B-Natriuretic Peptide Serum Total Protein Albumin Globulin Albumin/Globulin Ratio Date of admission: 05/17/17 17:21 Primary care physician: Gomez Lynch CNP Discharging clinician: Ranjan Powell Anticipated date of discharge: 05/18/17 - Patient Status Disposition: Home, Self-Care Functional capacity at discharge: independent ambulation Overall status at discharge: patient is back to baseline - Discharge Instructions Follow Up With: Gomez Lynch CNP [Primary Care Provider] - - Diet and Activity Activity: increase activity as tolerated Diet: diabetic diet, low fat, low cholesterol Interval History: Overnight the patient had no chest pain, dyspnea, dysrhythmias. Vitals have been. She has been ambulatory and had a shower this morning. She is ready for discharge. Hospital course: Ms. Mackenzie is a 71 year old female with known history of paroxysmal atrial fibrillation and previous SD was admitted to observation bed with chest pain history. Please see the diagnosis above. - Time Spent with Patient Total time spent providing and/or coordinating discharge services: - Constitutional Vitals: Temp Pulse Resp BP Pulse Ox 98.2 F 74 18 110/60 91 05/18/17 11:27 05/18/17 11:27 05/18/17 11:27 05/18/17 11:27 05/18/17 11:27 General appearance: Present: A&O X 3, morbidly obese, no acute distress, answers questions appropriately - Respiratory Respiratory exam: Present: decreased breath sounds, CTAB - Cardiovascular Cardiovascular exam: Present: RRR, +S1, +S2. Absent: systolic murmur - GI/Abdominal GI/Abdominal exam: Present: soft. Absent: tenderness - Extremities Exam Extremities exam: Absent: calf tenderness, pedal edema, tenderness - VTE Reasons for not Prescribing Prophylaxis: Not indicated-Anticoagulated or INR therapeutic
[2017-05-18] MEDS ORDERED: *HR* Rivaroxaban 10 MG TABLET PO SCH (17:00)
[2017-05-18] MEDS ORDERED: clonazePAM 1 MG TABLET PO SCH (21:00)
--- NOTE | 2017-05-20 15:15 | Electrocardiograph Report ---
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
--- NOTE | 2017-05-20 15:24 | Electrocardiograph Report ---
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
== END 2017-05-18 12:30 | disposition home or self-care (01) ==
LOC: EMEROOGRE 13:40 → INPGRE 13:40
PROVIDERS: ADMIT Family Medicine; ATTEND Family Medicine

== ENCOUNTER 2018-07-12 19:07 | Observation (INO) ==
[2018-07-12] MEDS ORDERED: *HR* Morphine 2 MG/ML SYRINGE IVP ONE (19:35)
--- NOTE | 2018-07-12 19:49 | Emergency Department Note ---
Disposition Clinical Impression: Atypical chest pain Disposition: Admitted As Inpatient Condition: Good Forms: ED Satisfaction Letter Chest Pain HPI - General Chief Complaint: ED Chest Pain Stated Complaint: chest pain Source: patient, EMS Limitations: no limitations Vital Signs Reviewed: Yes Nursing Notes Reviewed: Yes - History of Present Illness HPI Narrative: Was sitting in a recliner and developed chest pain in the anterior chest and a fast heart rate. The heart rate came back down but she still has chest pain that is somewhat sharp and just to the left of the anterior midline. No radiation to neck, shoulder, arm or back. Had some nausea and she said she broke out into a sweat. Did not take nitroglycerine as she believes she is allergic to it. She was given zofran and 324mg of aspirin by EMS. She says she feels SOB with the chest pain. Has a history of atrial fib, on Xaralto, and says she has had one [place] in the past but says she has never had a cardiac cath, no intervention or bypasses. Pt complaint: chest pain Onset (ago): hour(s) (1) Duration: constant Onset: during rest Pain Location: left chest Severity: moderate Severity scale (1-10): 5 Quality: sharp Pain Radiation: none Improves with: nothing Worsens with: nothing Associated symptoms: Reports: nausea, diaphoresis, dyspnea - Related Data Home Medications Medication Instructions Recorded Confirmed Atorvastatin Calcium [Lipitor] 10 mg PO DAILY 03/27/16 07/12/18 Levothyroxine [Synthroid] 50 mcg PO DAILY 03/27/16 07/12/18 Omeprazole 40 mg PO DAILY 03/27/16 07/12/18 Quetiapine Fumarate [Seroquel] 25 mg PO BID 03/27/16 07/12/18 Amlodipine Besylate/Benazepril 1 each PO DAILY 01/06/17 07/12/18 [Lotrel 10-20 mg Capsule] Cetirizine HCl [Zyrtec] 10 mg PO DAILY 05/17/17 07/12/18 Rivaroxaban [Xarelto] 20 mg PO DAILY 05/17/17 07/12/18 Previous Rx's Medication Instructions Recorded Aspirin 81 mg PO DAILY #30 tab.chew 06/07/16 Quetiapine Fumarate [Seroquel] 300 mg PO HS tablet 01/16/17 Sotalol [Betapace] 80 mg PO Q12HR tablet 01/16/17 metFORMIN [Glucophage] 500 mg PO 0800 tablet 01/16/17 Acetaminophen [Tylenol] 650 mg PO Q6HR PRN tab 05/18/17 clonazePAM [Klonopin] 1 mg PO DAILY tab 05/18/17 clonazePAM [Klonopin] 2 mg PO HS tab 05/18/17 Allergies Allergy/AdvReac Type Severity Reaction Status Date / Time codeine Allergy Rash Verified 07/12/18 19:15 ibuprofen Allergy Shakiness Verified 07/12/18 19:15 nitroglycerin Allergy Anaphylaxis Verified 07/12/18 19:15 All systems ED: reviewed and negative except as stated. Chest Pain PMH - Past Medical History Medical history: Reports: atrial fibrillation, coronary artery disease, diabetes , hypertension, myocardial infarction, thyroid disease, syncope, other Surgical history: Reports: other (Tubal ligation in remote past) Psychiatric history: Reports: anxiety, depression [employer] history: Reports: bilateral tubal ligation - Social History Smoking Status: Former smoker Alcohol use: Reports: none Drug use: Reports: none Physical Exam - General Limitations: no limitations General appearance: alert, in no apparent distress, anxious, obese - Head Head exam: atraumatic, normocephalic - Eye Eye exam: Present: normal appearance, PERRL, EOMI. Absent: conjunctival injection - ENT ENT exam: normal exam, normal oropharynx, mucous membranes moist - Neck Neck exam: Present: normal inspection, full ROM, trachea midline. Absent: lymphadenopathy - Chest Chest inspection: Present: normal inspection, symmetric chest wall rise - Respiratory Respiratory exam: Present: normal lung sounds bilaterally. Absent: respiratory distress, accessory muscle use - Cardiovascular Cardiovascular exam: Present: regular rate, normal rhythm, normal heart sounds - Abdominal Exam Abdominal exam: Present: soft, Non-Tender, normal bowel sounds - Extremities Exam Extremities exam: Present: normal inspection, full ROM. Absent: tenderness, pedal edema - Expanded Lower Extremity Exam Neurovascular/Tendon exam: Present: normal capillary refill. Absent: pulse deficit - Back Exam Back exam: Present: normal inspection, full ROM - Neurological Exam Neurological exam: Present: alert, oriented X3 - Psychiatric Psychiatric exam: Present: normal affect, normal mood - Skin Skin exam: Present: warm, dry, normal color Course - Reevaluation(s) Reevaluation #1: 2041: her chest pain is much improved after morphine and her troponin is normal. I think she is low to moderate risk and I have spoken to Dr. Vazquez who agrees to observe her on the floor. Her vital signs are stable. Vital Signs Temperature 98.0 F 07/12/18 19:10 Pulse Rate 103 07/12/18 19:10 Respiratory Rate 20 07/12/18 19:10 Blood Pressure 133/89 07/12/18 19:10 O2 Sat by Pulse Oximetry 94 07/12/18 19:10 Temperature 98.0 F 07/12/18 19:10 Pulse Rate 99 07/12/18 19:57 Respiratory Rate 20 07/12/18 19:57 Blood Pressure 133/82 07/12/18 20:19 O2 Sat by Pulse Oximetry 94 07/12/18 20:13 Oxygen Delivery Oxygen Delivery Room Air Chest Pain - Differential Diagnosis Likely: pneumothorax, stable angina, unstable angina pectoris, atypical chest pain, st elevation myocardial infraction, biliary colic - Medical Records Medical records reviewed: Yes I reviewed the patient's medical records. - Lab Data Lab results reviewed: Yes I reviewed the patient's lab results. Result diagrams: 07/12/18 19:50 07/12/18 19:50 Lab Results 07/12/18 07/12/18 07/12/18 Range/Units 19:50 19:50 19:50 WBC (4.3-11.1) K/mcL RBC (3.82-4.97) M/mcL Hgb (11.5-15.4) g/dL Hct (35.3-44.9) % MCV (83.0-100.0) fL MCH (28.0-33.3) pg MCHC (31.6-35.5) g/dL RDW (11.5-14.5) % Plt Count (140-400) K/mcL MPV (9.4-12.4) fL Immature Gran % (0-4) % Seg Neutrophils % % Lymphocytes % % Monocytes % % Eosinophils % % Basophils % % Neutrophils # (1.6-8.9) K/mcL Lymphocytes # (0.6-4.6) K/mcL Monocytes # (0.0-1.3) K/mcL Eosinophils # (0.0-0.6) K/mcL Basophils # (0.0-0.2) K/mcL PT 13.1 H (9.4-12.1) Seconds INR 1.2 APTT 38.9 H (26.0-36.0) Seconds Sodium (136-145) mEq/L Potassium (3.5-5.1) mEq/L Chloride (98-107) mEq/L Carbon Dioxide (23-29) mEq/L BUN (8-23) mg/dL Creatinine (0.60-1.20) mg/dL Est GFR ( Amer) (> 60) Est GFR (Non-Af Amer) (> 60) BUN/Creatinine Ratio (6-26) Glucose (70-105) mg/dL Calculated Osmolality (280-300) Calcium (8.6-10.3) mg/dL Total Bilirubin 0.3 (0.3-1.0) mg/dL Direct Bilirubin 0.0 (0.0-0.2) mg/dL Indirect Bilirubin 0.3 (0.0-1.2) mg/dL AST 46 H (13-39) Units/L ALT 47 (7-52) Units/L Alkaline Phosphatase 114 H (34-104) Units/L Troponin I (< 0.04) ng/mL B-Natriuretic Peptide 30 (Less than 100) pg/mL Serum Total Protein 6.4 (6.4-8.9) g/dL Albumin 3.9 (3.5-5.7) g/dL Globulin 2.5 (2.4-3.5) g/dL Albumin/Globulin Ratio 1.6 (1.1-2.2) 07/12/18 07/12/18 Range/Units 19:50 19:50 WBC 6.8 (4.3-11.1) K/mcL RBC 4.06 (3.82-4.97) M/mcL Hgb 13.4 (11.5-15.4) g/dL Hct 40.0 (35.3-44.9) % MCV 98.5 (83.0-100.0) fL MCH 33.0 (28.0-33.3) pg MCHC 33.5 (31.6-35.5) g/dL RDW 12.2 (11.5-14.5) % Plt Count 184 (140-400) K/mcL MPV 9.7 (9.4-12.4) fL Immature Gran % 0.1 (0-4) % Seg Neutrophils % 52.4 % Lymphocytes % 35.2 % Monocytes % 7.2 % Eosinophils % 4.4 % Basophils % 0.7 % Neutrophils # 3.6 (1.6-8.9) K/mcL Lymphocytes # 2.4 (0.6-4.6) K/mcL Monocytes # 0.5 (0.0-1.3) K/mcL Eosinophils # 0.3 (0.0-0.6) K/mcL Basophils # 0.1 (0.0-0.2) K/mcL PT (9.4-12.1) Seconds INR APTT (26.0-36.0) Seconds Sodium 139 (136-145) mEq/L Potassium 4.0 (3.5-5.1) mEq/L Chloride 102 (98-107) mEq/L Carbon Dioxide 27 (23-29) mEq/L BUN 16 (8-23) mg/dL Creatinine 0.78 (0.60-1.20) mg/dL Est GFR ( Amer) > 60 (> 60) Est GFR (Non-Af Amer) > 60 (> 60) BUN/Creatinine Ratio 21 (6-26) Glucose 258 H (70-105) mg/dL Calculated Osmolality 298 (280-300) Calcium 8.8 (8.6-10.3) mg/dL Total Bilirubin (0.3-1.0) mg/dL Direct Bilirubin (0.0-0.2) mg/dL Indirect Bilirubin (0.0-1.2) mg/dL AST (13-39) Units/L ALT (7-52) Units/L Alkaline Phosphatase (34-104) Units/L Troponin I < 0.03 (< 0.04) ng/mL B-Natriuretic Peptide (Less than 100) pg/mL Serum Total Protein (6.4-8.9) g/dL Albumin (3.5-5.7) g/dL Globulin (2.4-3.5) g/dL Albumin/Globulin Ratio (1.1-2.2) - Radiology Data Radiology results reviewed: Yes I reviewed the patient's radiology results. - EKG Data EKG attestation: Yes I reviewed and interpreted this EKG. EKG shows normal: sinus rhythm (sinus tachycardia) Rate: tachycardia (104) [place]/QRS: left axis deviation When compared to previous EKG there are: no significant changes Interpretation: unchanged when compared to prior tracing (date) ( 01/06/17, ), nonspecific ST-T wave changes Heart Score - Score History: Slightly Suspicious EKG: Non Specific repolarisation Disturbance Age: Greater than 65 Risk Factors: Equal/Greater than 3 risk factor or history of atherosclerotic disease Troponin: Less than normal limit HEART Score Total: 5
[2018-07-12 19:54] LABS: Basophils # 0.1 K/mcL (0.0-0.2); Basophils % 0.7 %; Eosinophils # 0.3 K/mcL (0.0-0.6); Eosinophils % 4.4 %; Hemoglobin 13.4 g/dL (11.5-15.4); Immature Granulocytes % 0.1 % (0-4); Lymphocytes # 2.4 K/mcL (0.6-4.6); Lymphocytes % 35.2 %; Mean Corpuscular HGB Conc 33.5 g/dL (31.6-35.5); Mean Corpuscular Volume 98.5 fL (83.0-100.0); Mean Platelet Volume 9.7 fL (9.4-12.4); Monocytes # 0.5 K/mcL (0.0-1.3); Monocytes % 7.2 %; Neutrophils # 3.6 K/mcL (1.6-8.9); Platelet Count 184 K/mcL (140-400); Red Blood Count 4.06 M/mcL (3.82-4.97); Red Cell Distribution Width 12.2 % (11.5-14.5); Segmented Neutrophils % 52.4 %
[2018-07-12 20:00] LABS: INR 1.2; Prothrombin Time 13.1 Seconds (9.4-12.1)
[2018-07-12 20:02] LABS: Activated Partial Thrombo Time 38.9 Seconds (26.0-36.0)
[2018-07-12 20:11] LABS: BUN/Creatinine Ratio 21 (6-26); Blood Urea Nitrogen 16 mg/dL (8-23); Calcium 8.8 mg/dL (8.6-10.3); Carbon Dioxide 27 mEq/L (23-29); Chloride 102 mEq/L (98-107); Glucose 258 mg/dL (70-105); Osmolality,Calculated 298 (280-300); Sodium 139 mEq/L (136-145); eGFR For Non-African Americans > 60 (> 60)
[2018-07-12 20:12] LABS: Albumin 3.9 g/dL (3.5-5.7); Albumin/Globulin Ratio 1.6 (1.1-2.2); Bilirubin,Indirect 0.3 mg/dL (0.0-1.2); Bilirubin,Total 0.3 mg/dL (0.3-1.0); Globulin 2.5 g/dL (2.4-3.5); Total Protein 6.4 g/dL (6.4-8.9)
[2018-07-12 20:17] LABS: Troponin I < 0.03 ng/mL (< 0.04)
[2018-07-12] MEDS ORDERED: Naloxone 0.4 MG/ML INJ IVP PRN (21:34)
[2018-07-12] MEDS ORDERED: Acetaminophen 325 MG TABLET PO PRN (21:34)
[2018-07-12] MEDS: clonazePAM 1 MG TABLET PO SCH (22:22)
[2018-07-13 06:43] VITALS: BP 101/65
[2018-07-13] MEDS ORDERED: *HR* Enoxaparin 40 MG/0.4 ML SYRINGE SQ SCH (07:00)
[2018-07-13] MEDS ORDERED: *HR* Metformin 500 MG TABLET PO SCH (08:00)
[2018-07-13] MEDS ORDERED: *HR* Rivaroxaban 10 MG TABLET PO SCH (09:00)
[2018-07-13] MEDS ORDERED: clonazePAM 1 MG TABLET PO SCH (09:00)
[2018-07-13] MEDS ORDERED: Aspirin 81 MG TAB.CHEW PO SCH (09:00)
--- NOTE | 2018-07-13 09:04 | Internal Med History&Physical ---
Date of Encounter: 07/13/18 Time of Encounter: 08:58 Assessment and Plan (1) HLD (hyperlipidemia) Current visit: No Status: Chronic on med continue to followup and adjust meds Qualifiers: Hyperlipidemia type: unspecified Qualified Code(s): E78.5 - Hyperlipidemia , unspecified (2) HTN (hypertension) Current visit: No Status: Chronic On meds HTN controlled Qualifiers: Hypertension type: essential hypertension Qualified Code(s): I10 - Essential (primary) hypertension (3) Non-insulin dependent type 2 diabetes mellitus Current visit: No Status: Chronic On meds and sliding scale adjust dose as needed (4) Hypothyroid Current visit: No Status: Chronic Qualifiers: 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 On anticoagulation and complaint with her meds She is on monitor will follow (6) Chest pain Current visit: No Status: Acute She is high risk although I could reproduce her chest pain mid thoracic area she is very clear that the pain which brought her here was not which is being reproduced. She has hx of Prox A fib , Her troponin have been negative third one pending . If the trend of being negative continues. She could be discharged home . She will need a followup with her medical care administrator for further workup . She could have Stress test as out patient or while here on Saturday. Clinically she is s table and and getting symptomatic management . Qualifiers: Chest pain type: other chest pain Qualified Code(s): R07.89 - Other chest pain; R07.8 - Other chest pain Internal Medicine - H&P: HPI Chief complaint: chest pain and palpitation Admitted From: Emergency Dept History of present illness: Ms. Mackenzie is a 72 year old female with hx of A fib , stable rate , CAD HTN , and Dm who started having Ir heart beat in the range of 180 while she was sitting at home She felt SOB and chest pain which was mid chest mild radiation to her left side .She states that her pain remained for 20/30 minutes she didnt take any NTG called fidel and came to ED where she had chest pain and morphine helped relevie her pain . No complains of fever or chills no dizzyness no wekaness in arms or legs No symptoms of any infection . Her EKG during pain done in ED shows regular Rhythm with lateral T inversion . She elspt well last night and has been pain free since her admission . She had some nausea no vomiting. Past Med Surg Social Fam HX - Past Medical History Medical history: atrial fibrillation, coronary artery disease, diabetes, GERD, hypertension, myocardial infarction, thyroid disease, syncope Psychiatric history: anxiety, depression - Past Surgical History Surgical History: herniorrhaphy, other Additional surgical history: Tubal Ligation - Social History Smoking Status: Former smoker Smokeless Tobacco Status: No Alcohol use: none Drug use: none - Family History Father Living Status: Brother Living Status: Still Living Hx Family Endocrine Disorder: Yes (Diabetes) Sister Living Status: Still Living Hx Family Endocrine Disorder: Yes (Diabetes) Mother Family Member Ethnicity: Non- Living Status: Hx Family Cardiac Disorders: No Hx Family Respiratory Disorders: Yes Hx Family Cancer: Yes (Lung cancer, colon cancer) Hx Family GI Disorders: No Hx Family Endocrine Disorder: Yes (Diabetes) Hx Family Neuromuscular Disorders: No Hx Family Neurologic Disorders: No Hx Family HEENT Disorders: No Hx Family Autoimmune Disorders: No Internal Medicine - H&P: Meds Atorvastatin Calcium [Lipitor] 10 mg PO DAILY 03/27/16 [History] Omeprazole 40 mg PO DAILY 03/27/16 [History] Aspirin 81 mg PO DAILY #30 tab.chew 06/07/16 [Rx] Quetiapine Fumarate [Seroquel] 300 mg PO HS tablet 01/16/17 [Rx] Sotalol [Betapace] 80 mg PO Q12HR tablet 01/16/17 [Rx] metFORMIN [Glucophage] 500 mg PO 0800 tablet 01/16/17 [Rx] Rivaroxaban [Xarelto] 20 mg PO DAILY 05/17/17 [History] Acetaminophen [Tylenol] 650 mg PO Q6HR PRN tab 05/18/17 [Rx] clonazePAM [Clonazepam] 1 mg PO TID 07/12/18 [History] 3 Allergy/AdvReac Type Severity Reaction Status Date / Time codeine Allergy Rash Verified 07/12/18 19:15 ibuprofen Allergy Shakiness Verified 07/12/18 19:15 nitroglycerin Allergy Anaphylaxis Verified 07/12/18 19:15 All Systems PM: A 10-system review of systems was performed and is negative for pertinent findings except as documented above in the HPI. - Constitutional Constitutional: no anorexia, no chills, no excessive sweating, no fatigue, no fever(s), no falls, no weakness, no weight gain, no weight loss - EENT Eyes: no blurry vision, no diplopia, no discharge, no dry eye, no irritation, no loss of vision, no photophobia, no spots in vision Nose, mouth and throat: no change in voice, no dry mouth, no dysphagia, no epistaxis, no facial pain, no nasal congestion, no nasal discharge, no sinus pressure, no sore throat, no throat swelling - Cardiovascular Cardiovascular ROS IM: chest pain, diaphoresis, dyspnea on exertion, irregular heart rhythm, palpitations, no claudication, no dyspnea, no edema, no lightheadedness, no orthopnea, no syncope - Respiratory Respiratory: no cough, no dyspnea, no hemoptysis, no dyspnea on exertion, no wheezing, no snoring, no pain on inspiration, no chest congestion, no excessive phlegm production, no pain with cough - Gastrointestinal Gastrointestinal: nausea, no abdominal pain, no bloating, no cramping, no diarrhea, no dyspepsia, no dysphagia, no fecal incontinence, no heartburn, no melena, no tenesmus, no vomiting - Genitourinary Genitourinary: nipple discharge, no nocturia, no pelvic pain, no post void dribbling, no prolapse symptoms - Musculoskeletal Musculoskeletal ROS IM: no arthralgias, no atrophy, no back pain, no muscle cramps, no muscle weakness, no myalgias - Integumentary Integumentary IM: no pruritus, no rash - Psychiatric Psychiatric: no hallucinations, no homicidal ideation, no suicidal ideation - Constitutional Vitals: Temp Pulse Resp BP Pulse Ox 98.1 F 81 18 101/65 90 07/13/18 06:43 07/13/18 06:43 07/13/18 06:43 07/13/18 06:43 07/13/18 06:43 General appearance: Present: A&O X 3, morbidly obese, pleasant. Absent: severe distress, underweight, loss of weight - Head Head exam: Present: atraumatic - Eye Eye exam: Present: EOMI, PERRL. Absent: conjunctival injection, scleral icterus Pupils: Present: PERRL. Absent: irregular, miosis - Neck Neck exam general surgery: Present: normal inspection, supple. Absent: tenderness, nuchal rigidity - Respiratory Respiratory exam: Present: chest wall tenderness, CTAB. Absent: decreased breath sounds, respiratory distress, rhonchi, stridor, wheezes, tachypnea Additional comments: mild tenderness mid chest noted but she states it is different then what brought her to the ED - Cardiovascular Cardiovascular exam: Present: RRR, +S1, +S2, systolic murmur. Absent: diastolic murmur, irregular rhythm, JVD, tachycardia Additional comments: soft systolic mummer - GI/Abdominal GI/Abdominal exam: Present: normal bowel sounds, soft, tenderness. Absent: rebound, rigid Additional comments: mid epigastria area mild tenderness BS - Extremities Exam Extremities exam: Absent: calf tenderness, pedal edema, tenderness, warm - Neurological Exam Neurological exam: Present: alert, CN II-XII intact, oriented X3, no focal deficits, strengths equal and symetr throughout. Absent: facial droop, speech deficit Internal Med - H&P Results - Labs CBC & Chem 7: 07/12/18 19:50 07/12/18 19:50 Labs: Cardiac Enzymes 07/13/18 Range/Units 03:31 Troponin I < 0.03 (< 0.04) ng/mL - EKG Data -: EKG Interpreted by Myself (T inversion lateallead ) EKG shows normal: sinus rhythm, intervals - EKG Data Prior EKG available for review: no EKG comments: 07/13/18 09:12 Sinus Rhythm , T inversions lateral lead No EKG for comparison
[2018-07-13] MEDS: clonazePAM 1 MG TABLET PO SCH (09:24)
--- NOTE | 2018-07-13 10:04 | Discharge Summary ---
- NOTES TO OUTPATIENT PROVIDER Notes to Outpatient Provider: for up stress test and cardiac echo as appropriate Orders not resulted at time of discharge: Pending orders troponin negative less then 0.03 07/13/18 09:45 Troponin I Timed Date of Encounter: 07/13/18 Time of Encounter: 10:01 - Discharge Diagnosis (1) HLD (hyperlipidemia) Priority: Secondary Status: Chronic Comments: stable continue present meds no new change Qualifiers: Hyperlipidemia type: unspecified Qualified Code(s): E78.5 - Hyperlipidemia , unspecified (2) HTN (hypertension) Priority: Secondary Status: Chronic Comments: Stable on meds Qualifiers: Hypertension type: essential hypertension Qualified Code(s): I10 - Essential (primary) hypertension (3) Non-insulin dependent type 2 diabetes mellitus Priority: Secondary Status: Chronic Comments: stable no new change (4) Paroxysmal a-fib Priority: Secondary Status: Chronic Comments: hx of Proximal A fib , on anticoagulation she was in sinus rhythm while admitted (5) Chest pain Priority: Primary Status: Acute Comments: She is pain free at the present time Her EKG when compared from previous EKG in 2017 is unchanged . Her third set troponin is pending first two are negative . 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 Mackenzie is a 72 year old female Time spent discussing smoking cessation with patient: more than 10 minutes - Time Spent with Patient Total time spent providing and/or coordinating discharge services: Specific discharge activities: Activity as tolerated. Schedule appointment with Ela Teacher for further testing and followup - Discharge Medications Home Medications: Atorvastatin Calcium [Lipitor] 10 mg PO DAILY 03/27/16 [History] Omeprazole 40 mg PO DAILY 03/27/16 [History] Aspirin 81 mg PO DAILY #30 tab.chew 06/07/16 [Rx] Quetiapine Fumarate [Seroquel] 300 mg PO HS tablet 01/16/17 [Rx] Sotalol [Betapace] 80 mg PO Q12HR tablet 01/16/17 [Rx] metFORMIN [Glucophage] 500 mg PO 0800 tablet 01/16/17 [Rx] Rivaroxaban [Xarelto] 20 mg PO DAILY 05/17/17 [History] Acetaminophen [Tylenol] 650 mg PO Q6HR PRN tab 05/18/17 [Rx] clonazePAM [Clonazepam] 1 mg PO TID 07/12/18 [History] Allergies/Adverse Reactions: 3 Allergy/AdvReac Type Severity Reaction Status Date / Time codeine Allergy Rash Verified 07/12/18 19:15 ibuprofen Allergy Shakiness Verified 07/12/18 19:15 nitroglycerin Allergy Anaphylaxis Verified 07/12/18 19:15 Date of admission: 07/12/18 20:53 Primary care physician: Gomez Lynch CNP Discharging clinician: Mamie Vazquez Anticipated date of discharge: 06/14/18 - Constitutional Vitals: Temp Pulse Resp BP Pulse Ox 98.1 F 81 18 101/65 90 07/13/18 06:43 07/13/18 06:43 07/13/18 06:43 07/13/18 06:43 07/13/18 06:43 General appearance: Present: A&O X 3, morbidly obese, pleasant. Absent: severe distress, underweight, loss of weight - Head Head exam: Present: atraumatic - Eye Eye exam: Present: PERRL Pupils: Present: PERRL - Neck Neck exam general surgery: Present: supple. Absent: tenderness, nuchal rigidity - Respiratory Respiratory exam: Present: chest wall tenderness, CTAB. Absent: decreased breath sounds, respiratory distress, rhonchi, stridor, wheezes Additional comments: mid chest - Cardiovascular Cardiovascular exam: Present: RRR, +S1, +S2, systolic murmur. Absent: irregular rhythm, JVD Additional comments: soft systolic mummer no radiation - GI/Abdominal GI/Abdominal exam: Present: normal bowel sounds, soft. Absent: diminished bowel sounds, distended, firm, guarding, rebound, rigid - Extremities Exam Extremities exam: Absent: calf tenderness, pedal edema, tenderness - Neurological Exam Neurological exam: Present: CN II-XII intact, oriented X3, no focal deficits. Absent: facial droop, speech deficit - Patient Status Disposition: Home, Self-Care Functional capacity at discharge: independent ambulation Overall status at discharge: patient is back to baseline - Discharge Instructions Follow Up With: Gomez Lynch, [employer] [Primary Care Provider] - - Diet and Activity Activity: other (As tolerated ) Diet: low fat, low cholesterol, low salt diet
--- NOTE | 2018-07-14 15:30 | Electrocardiograph Report ---
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
== END 2018-07-13 12:26 | disposition home or self-care (01) ==
LOC: EMEROOGRE 19:07 → INPGRE 19:07
PROVIDERS: ADMIT Internal Medicine; ATTEND Internal Medicine

== ENCOUNTER 2019-09-17 00:05 | Inpatient (IN) ==
[2019-09-17] MEDS ORDERED: Aspirin 325 MG TABLET PO ONE (00:27)
[2019-09-17 00:50] LABS: Basophils % 0.4 %; Eosinophils # 0.8 K/mcL (0.0-0.6); Eosinophils % 9.7 %; Hematocrit 40.9 % (35.3-44.9); Hemoglobin 13.4 g/dL (11.5-15.4); Immature Granulocytes % 0.3 % (0-4); Lymphocytes # 3.3 K/mcL (0.6-4.6); Lymphocytes % 41.2 %; Mean Corpuscular HGB Conc 32.8 g/dL (31.6-35.5); Mean Corpuscular Hemoglobin 31.8 pg (28.0-33.3); Mean Corpuscular Volume 96.9 fL (83.0-100.0); Mean Platelet Volume 9.5 fL (9.4-12.4); Monocytes # 0.6 K/mcL (0.0-1.3); Monocytes % 7.6 %; Neutrophils # 3.2 K/mcL (1.6-8.9); Platelet Count 225 K/mcL (140-400); Red Blood Count 4.22 M/mcL (3.82-4.97); Red Cell Distribution Width 12.7 % (11.5-14.5); Segmented Neutrophils % 40.8 %; White Blood Count 7.9 K/mcL (4.3-11.1)
[2019-09-17 00:58] LABS: INR 1.6; Prothrombin Time 18.3 Seconds (9.4-12.1)
[2019-09-17 01:00] LABS: Activated Partial Thrombo Time 45.3 Seconds (26.0-36.0)
[2019-09-17 01:10] LABS: Troponin I < 0.03 ng/mL (< 0.04)
[2019-09-17 01:22] LABS: BUN/Creatinine Ratio 17 (6-26); Blood Urea Nitrogen 14 mg/dL (8-23); Calcium 9.9 mg/dL (8.6-10.3); Carbon Dioxide 23 mEq/L (23-29); Chloride 104 mEq/L (98-107); Glucose 160 mg/dL (70-105); Magnesium 1.8 mg/dL (1.6-2.6); Osmolality,Calculated 296 (280-300); Potassium 3.8 mEq/L (3.5-5.1); Sodium 141 mEq/L (136-145); eGFR For African Americans > 60 (> 60); eGFR For Non-African Americans > 60 (> 60)
[2019-09-17 01:23] LABS: Thyroid Stimulating Hormone 7.765 mcIU/mL (0.340-5.600)
[2019-09-17] MEDS ORDERED: Acetaminophen 325 MG TABLET PO PRN ×2 (04:17→07:02)
[2019-09-17] MEDS ORDERED: Ondansetron 4 MG/2 ML VIAL IVP PRN ×2 (04:17→07:02)
[2019-09-17] MEDS ORDERED: Mag Hydrox/Al Hydrox/Simeth 30 ML UDC PO PRN ×2 (04:17→07:02)
[2019-09-17] MEDS ORDERED: Naloxone 0.4 MG/ML INJ IVP PRN ×3 (04:17→07:02)
[2019-09-17] MEDS ORDERED: 0.9 % Sodium Chloride 1,000 ML IVC ONE (04:20)
[2019-09-17] MEDS: clonazePAM 1 MG TABLET PO SCH ×3 (08:46→21:05)
[2019-09-17] MEDS ORDERED: Lisinopril 20 MG TABLET PO SCH (09:00)
[2019-09-17] MEDS ORDERED: amLODIPine 5 MG TABLET PO SCH (09:00)
[2019-09-17] MEDS: *HR* SitaGLIPtin 100 MG TABLET PO SCH (09:15)
[2019-09-17] MEDS: *HR* Metformin 500 MG TABLET PO SCH ×4 (09:16→21:51)
[2019-09-17] MEDS: *HR* Rivaroxaban 10 MG TABLET PO SCH (09:16)
[2019-09-17] MEDS: Aspirin 81 MG TAB.CHEW PO SCH (09:16)
[2019-09-18] MEDS: clonazePAM 1 MG TABLET PO SCH (08:39)
[2019-09-18] MEDS ORDERED: Lisinopril 20 MG TABLET PO SCH (09:00)
[2019-09-18] MEDS: Aspirin 81 MG TAB.CHEW PO SCH (09:10)
[2019-09-18] MEDS: *HR* Rivaroxaban 10 MG TABLET PO SCH (09:10)
[2019-09-18] MEDS: *HR* Metformin 500 MG TABLET PO SCH (09:10)
[2019-09-18] MEDS: *HR* SitaGLIPtin 100 MG TABLET PO SCH (09:10)
[2019-09-18] MEDS ORDERED: Diltiazem CD (24hr) 120 MG CAPSULE PO SCH (11:30)
[2019-09-18 11:32] VITALS: BP 119/75
[2019-09-18 16:09] LABS: Triiodothyronine (T3) Free 3.22 pg/mL (2.50-3.90)
== END 2019-09-18 12:00 | disposition home or self-care (01) | DRG 310 ==
LOC: EMEROOGRE 00:05 → INPGRE 06:44

== ENCOUNTER 2021-02-08 13:42 | Inpatient (IN) ==
[2021-02-08] MEDS: Levalbuterol Neb 1.25 MG/3 ML IH SCH (21:33)
[2021-02-08] MEDS: QUEtiapine Fumarate 100 MG TABLET PO SCH (21:46)
[2021-02-08] MEDS: clonazePAM 1 MG TABLET PO SCH (21:47)
[2021-02-08] MEDS: Topiramate 25 MG TABLET PO SCH (21:47)
[2021-02-09] MEDS: Levalbuterol Neb 1.25 MG/3 ML IH SCH ×4 (03:44→21:37)
[2021-02-09 04:36] LABS: Hematocrit 24.5 % (35.3-44.9); Hemoglobin 7.4 g/dL (11.5-15.4); Mean Corpuscular HGB Conc 30.2 g/dL (31.6-35.5); Mean Corpuscular Hemoglobin 25.3 pg (28.0-33.3); Mean Corpuscular Volume 83.6 fL (83.0-100.0); Mean Platelet Volume 9.8 fL (9.4-12.4); Platelet Count 280 K/mcL (140-400); Red Blood Count 2.93 M/mcL (3.82-4.97); Red Cell Distribution Width 16.4 % (11.5-14.5); White Blood Count 6.2 K/mcL (4.3-11.1)
[2021-02-09 04:52] LABS: Potassium 3.3 mEq/L (3.5-5.1)
[2021-02-09] MEDS: Topiramate 25 MG TABLET PO SCH ×2 (07:57→21:05)
[2021-02-09] MEDS: lamoTRIgine 25 MG TABLET PO SCH (07:57)
[2021-02-09] MEDS: lisinopriL 10 MG TABLET PO SCH (07:57)
[2021-02-09] MEDS: *HR* SitaGLIPtin 100 MG TABLET PO SCH (07:57)
[2021-02-09] MEDS: DilTIAZem CD (24hr) 120 MG CAP.ER.24H PO SCH (07:58)
[2021-02-09] MEDS ORDERED: 0.9 % Sodium Chloride 250 ML IVC SCH (09:45)
[2021-02-09 10:01] LABS: Basophils # 0.1 K/mcL (0.0-0.2); Basophils % 1.2 %; Eosinophils # 0.5 K/mcL (0.0-0.6); Eosinophils % 8.4 %; Hematocrit 28.2 % (35.3-44.9); Hemoglobin 8.5 g/dL (11.5-15.4); Immature Granulocytes % 0.3 % (0-4); Lymphocytes # 1.9 K/mcL (0.6-4.6); Lymphocytes % 31.8 %; Mean Corpuscular HGB Conc 30.1 g/dL (31.6-35.5); Mean Corpuscular Hemoglobin 25.4 pg (28.0-33.3); Mean Corpuscular Volume 84.4 fL (83.0-100.0); Mean Platelet Volume 10.4 fL (9.4-12.4); Monocytes # 0.5 K/mcL (0.0-1.3); Monocytes % 7.6 %; Platelet Count 328 K/mcL (140-400); Red Blood Count 3.34 M/mcL (3.82-4.97); Red Cell Distribution Width 16.8 % (11.5-14.5); Segmented Neutrophils % 50.7 %
[2021-02-09] MEDS: QUEtiapine Fumarate 25 MG TABLET PO SCH (11:36)
[2021-02-09] MEDS ORDERED: *HR* Rivaroxaban 15 MG TABLET PO SCH (17:00)
[2021-02-09] MEDS: clonazePAM 1 MG TABLET PO SCH (17:03)
[2021-02-09] MEDS: QUEtiapine Fumarate 100 MG TABLET PO SCH (21:04)
[2021-02-10] MEDS: Levalbuterol Neb 1.25 MG/3 ML IH SCH ×3 (03:58→15:26)
[2021-02-10 05:51] LABS: Hematocrit 24.8 % (35.3-44.9); Hemoglobin 7.4 g/dL (11.5-15.4)
[2021-02-10] MEDS: lisinopriL 10 MG TABLET PO SCH (07:45)
[2021-02-10] MEDS: *HR* SitaGLIPtin 100 MG TABLET PO SCH (07:46)
[2021-02-10] MEDS: lamoTRIgine 25 MG TABLET PO SCH (07:46)
[2021-02-10] MEDS: DilTIAZem CD (24hr) 120 MG CAP.ER.24H PO SCH (07:46)
[2021-02-10] MEDS: Topiramate 25 MG TABLET PO SCH ×2 (07:46→21:36)
[2021-02-10] MEDS: QUEtiapine Fumarate 25 MG TABLET PO SCH (12:34)
[2021-02-10] MEDS: clonazePAM 1 MG TABLET PO SCH (17:15)
[2021-02-10] MEDS ORDERED: Levalbuterol Neb 1.25 MG/3 ML IH PRN (18:02)
[2021-02-10] MEDS: QUEtiapine Fumarate 100 MG TABLET PO SCH (21:37)
[2021-02-11 05:36] LABS: Hematocrit 25.3 % (35.3-44.9); Hemoglobin 7.5 g/dL (11.5-15.4); Mean Corpuscular HGB Conc 29.6 g/dL (31.6-35.5); Mean Corpuscular Hemoglobin 25.2 pg (28.0-33.3); Mean Corpuscular Volume 84.9 fL (83.0-100.0); Mean Platelet Volume 9.8 fL (9.4-12.4); Platelet Count 333 K/mcL (140-400); Red Blood Count 2.98 M/mcL (3.82-4.97); White Blood Count 5.8 K/mcL (4.3-11.1)
[2021-02-11 05:52] LABS: Albumin 3.2 g/dL (3.5-5.7); Albumin/Globulin Ratio 1.8 (1.1-2.2); Bilirubin,Total 0.3 mg/dL (0.3-1.0); Calcium 8.2 mg/dL (8.6-10.3); Globulin 1.8 g/dL (2.4-3.5); Magnesium 1.9 mg/dL (1.6-2.6); Potassium 3.5 mEq/L (3.5-5.1)
[2021-02-11] MEDS: DilTIAZem CD (24hr) 120 MG CAP.ER.24H PO SCH (08:14)
[2021-02-11] MEDS: Topiramate 25 MG TABLET PO SCH ×2 (08:15→20:52)
[2021-02-11] MEDS: *HR* SitaGLIPtin 100 MG TABLET PO SCH (08:16)
[2021-02-11] MEDS: lamoTRIgine 25 MG TABLET PO SCH (08:16)
[2021-02-11] MEDS: lisinopriL 10 MG TABLET PO SCH (08:16)
[2021-02-11] MEDS ORDERED: 0.9 % Sodium Chloride 250 ML ONE (10:46)
[2021-02-11] MEDS: clonazePAM 1 MG TABLET PO SCH (17:30)
[2021-02-11] MEDS: QUEtiapine Fumarate 100 MG TABLET PO SCH (20:51)
[2021-02-12 05:21] LABS: Hematocrit 28.2 % (35.3-44.9); Hemoglobin 8.6 g/dL (11.5-15.4); Mean Corpuscular HGB Conc 30.5 g/dL (31.6-35.5); Mean Corpuscular Hemoglobin 25.7 pg (28.0-33.3); Mean Corpuscular Volume 84.4 fL (83.0-100.0); Mean Platelet Volume 9.6 fL (9.4-12.4); Platelet Count 344 K/mcL (140-400); Red Blood Count 3.34 M/mcL (3.82-4.97); Red Cell Distribution Width 16.6 % (11.5-14.5)
[2021-02-12 05:41] LABS: Albumin 3.1 g/dL (3.5-5.7); Albumin/Globulin Ratio 1.7 (1.1-2.2); Bilirubin,Total 0.3 mg/dL (0.3-1.0); Calcium 8.2 mg/dL (8.6-10.3); Globulin 1.8 g/dL (2.4-3.5); Magnesium 1.9 mg/dL (1.6-2.6); Potassium 3.4 mEq/L (3.5-5.1); Total Protein 4.9 g/dL (6.4-8.9)
[2021-02-12] MEDS: lamoTRIgine 25 MG TABLET PO SCH (08:47)
[2021-02-12] MEDS: *HR* SitaGLIPtin 100 MG TABLET PO SCH (08:47)
[2021-02-12] MEDS: Topiramate 25 MG TABLET PO SCH ×2 (08:47→22:03)
[2021-02-12] MEDS: DilTIAZem CD (24hr) 120 MG CAP.ER.24H PO SCH ×2 (08:48→12:07)
[2021-02-12] MEDS: lisinopriL 10 MG TABLET PO SCH (08:48)
[2021-02-12] MEDS ORDERED: QUEtiapine Fumarate 100 MG TABLET PO SCH (12:00)
[2021-02-12 12:06] LABS: Folate 14.5 ng/mL (3.0-16.0)
[2021-02-12] MEDS ORDERED: polyethylene glycoL 3350 17 GM POWD.PACK PO PRN (12:57)
[2021-02-12] MEDS: Ascorbic Acid 500 MG TABLET PO SCH (17:15)
[2021-02-12] MEDS: clonazePAM 1 MG TABLET PO SCH (17:15)
[2021-02-12] MEDS: QUEtiapine Fumarate 100 MG TABLET PO SCH (22:04)
[2021-02-13 06:39] VITALS: BP 116/74
[2021-02-13] MEDS ORDERED: Cyanocobalamin (B-12) 1,000 MCG TABLET PO SCH (09:00)
[2021-02-13] MEDS: Ascorbic Acid 500 MG TABLET PO SCH (09:36)
[2021-02-13] MEDS: Topiramate 25 MG TABLET PO SCH (09:36)
[2021-02-13] MEDS: DilTIAZem CD (24hr) 120 MG CAP.ER.24H PO SCH (09:36)
[2021-02-13] MEDS: *HR* SitaGLIPtin 100 MG TABLET PO SCH (09:36)
[2021-02-13] MEDS: lamoTRIgine 25 MG TABLET PO SCH (09:36)
[2021-02-13] MEDS: lisinopriL 10 MG TABLET PO SCH (09:36)
== END 2021-02-13 11:58 | disposition home or self-care (01) | DRG 945 ==
LOC: INPGRE 20:17
PROVIDERS: ADMIT Family Medicine; ATTEND Family Medicine